=== PATIENT | female | born 1965 | race Caucasian/White ===

== ENCOUNTER 2017-11-23 12:08 | Day surgery (SDC) | payer SELFPAY ==
--- NOTE | 2017-11-22 21:54 | PCM.HP.BLA ---
History and Physical Date of Admission: 11/23/17 Surgical History and Physical Darlene Patton, a 52 year old female 7 0 0 0 7, presents for Vaginal Hysterectomy and AP Repair on November 23, 2017 at [facility]. -- Cystocele/Rectocele; Menorrhagia; Submucous Fibroids -- Prolonged bleeding with clots which began 1 year ago. Darlene claims it started gradually and has been present worsened in last 6 months. It occurs with menses. It is located in the vagina.; It is located in the lower abdomen. Darlene characterizes the quality heavy bleeding, clots,cramping. Severity is moderate and very concerned; It is relieved by oral iron. Associated signs and symptoms are recent hgb in 9's. Additional comments are: had D and C last fall showing submucous fibroids. MEDICATIONS HISTORY: Patient is also takin. progesterone micronized 200 mg capsule, 1 PO QD ALLERGIES: No Known Allergies Infections - Chicken pox, Mumps and Measles Illnesses - no serious past illnesses Accidents - None Hospitalizations - see surgery Review of Systems: GENERAL - Denies fever, or chills SKIN - Denies skin changes EYES - Denies visual changes EARS - Denies difficulty hearing NOSE - Denies nasal congestion or bleeding MOUTH - Denies sore throat or difficulty swallowing NECK - Denies pain or swelling RESPIRATORY - Denies shortness of breath or wheezing CARDIOVASCULAR - Denies palpitations or chest pain GASTROINTESTINAL - Denies nausea, vomiting, diarrhea, constipation GENITOURINARY - Denies dysuria, frequency of urination, incontinence of urine MUSCULOSKELETAL - Denies joint or muscle pain NEUROLOGICAL - Denies localized numbness or weakness PSYCHIATRIC - Denies depression or anxiety ENDOCRINE - Denies heat or cold intolerance, weight loss or gain HEMATO-IMMUNOLOGIC - Denies excesive bleeding with cuts SOCIAL HISTORY: Alcohol Use - None Smoking - Never Diet - no special diet Lifestyle - moderate stress lifestyle and Exercise - active work Seat Belt Use - most of the time Employer - [employer] Illicit Drug Use - None Sexual Activity - Spouse-Sig Other Name - Tereso Spouse-Sig 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 T and A, 1968 ; - 2. 03/16/2017 hysteroscopy, Fractional D and C ; Gene Javed M.D. - PHYSICAL EXAM BP- 134/82 Sitting, Left arm, regular cuff Weight- 152.70599 lbs Height- 62.5 inch BMI:27.42 CONSTITUTIONAL - NAD, well nourished, and well developed SKIN - No rash, lesions, or ulcers HEENT - Normocephalic, PERRLA, EOMI NECK - No nodes, no nuchal rigidity and thyroid normal size and texture LYMPH NODES - Palpation of lymph nodes in neck and groins within normal limits LUNGS - CTA x2 without wheezes, crackles or rales CARDIAC - Regular rate and rhythm without rubs, murmurs, or gallops ABDOMEN - Without hepatosplenomegaly, distention, masses, rebound, or guarding; normal bowel sounds; no hernias EXTREMITIES - No edema or calf tenderness NEUROLOGICAL - Cranial nerves II-XII grossly intact PSYCHIATRIC - A and O to time, place, person, mood and affect External Genitial Vagina - non-tender without lesions Urethra/Urethral Meatus - non-tender Bladder - non-tender Vagina - vaginal fleming are pink and moist without loss of rugae and no evidence of atropy and blood in vagina Cervix - without cervical motion tenderness and has normal size and features without evident lesions Uterus - enlarged uterus 8 wks, wt 125-150 g Adnexa - clear without massess or tenderness ASSESSMENT/PLAN: 1. Blood Loss Anemia, Cystocele Midline, Leiomyoma, Unspec, Menorrhagia and Rectocele Discussed options for treatment and plan to proceed with Vaginal Hysterectomy, AP Repair. Discussed RBAS and all questions answered.
--- NOTE | 2017-11-22 21:57 | HP.PCM_ITS ---
History and Physical Date of Admission: 11/23/17 Surgical History and Physical Darlene Patton, a 52 year old female 7 0 0 0 7, presents for Vaginal Hysterectomy and AP Repair on November 23, 2017 at [facility]. -- Cystocele/Rectocele; Menorrhagia; Submucous Fibroids -- Prolonged bleeding with clots which began 1 year ago. Darlene claims it started gradually and has been present worsened in last 6 months. It occurs with menses. It is located in the vagina.; It is located in the lower abdomen. Darlene characterizes the quality heavy bleeding, clots,cramping. Severity is moderate and very concerned; It is relieved by oral iron. Associated signs and symptoms are recent hgb in 9's. Additional comments are: had D and C last fall showing submucous fibroids. MEDICATIONS HISTORY: Patient is also takin. progesterone micronized 200 mg capsule, 1 PO QD ALLERGIES: No Known Allergies Infections - Chicken pox, Mumps and Measles Illnesses - no serious past illnesses Accidents - None Hospitalizations - see surgery Review of Systems: GENERAL - Denies fever, or chills SKIN - Denies skin changes EYES - Denies visual changes EARS - Denies difficulty hearing NOSE - Denies nasal congestion or bleeding MOUTH - Denies sore throat or difficulty swallowing NECK - Denies pain or swelling RESPIRATORY - Denies shortness of breath or wheezing CARDIOVASCULAR - Denies palpitations or chest pain GASTROINTESTINAL - Denies nausea, vomiting, diarrhea, constipation GENITOURINARY - Denies dysuria, frequency of urination, incontinence of urine MUSCULOSKELETAL - Denies joint or muscle pain NEUROLOGICAL - Denies localized numbness or weakness PSYCHIATRIC - Denies depression or anxiety ENDOCRINE - Denies heat or cold intolerance, weight loss or gain HEMATO-IMMUNOLOGIC - Denies excesive bleeding with cuts SOCIAL HISTORY: Alcohol Use - None Smoking - Never Diet - no special diet Lifestyle - moderate stress lifestyle and Exercise - active work Seat Belt Use - most of the time Employer - [employer] Illicit Drug Use - None Sexual Activity - Spouse-Sig Other Name - Tereso Spouse-Sig 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 T and A, 1968 ; - 2. 03/16/2017 hysteroscopy, Fractional D and C ; Gene Javed M.D. - PHYSICAL EXAM BP- 134/82 Sitting, Left arm, regular cuff Weight- 152.90059 lbs Height- 62.5 inch BMI:27.42 CONSTITUTIONAL - NAD, well nourished, and well developed SKIN - No rash, lesions, or ulcers HEENT - Normocephalic, PERRLA, EOMI NECK - No nodes, no nuchal rigidity and thyroid normal size and texture LYMPH NODES - Palpation of lymph nodes in neck and groins within normal limits LUNGS - CTA x2 without wheezes, crackles or rales CARDIAC - Regular rate and rhythm without rubs, murmurs, or gallops ABDOMEN - Without hepatosplenomegaly, distention, masses, rebound, or guarding; normal bowel sounds; no hernias EXTREMITIES - No edema or calf tenderness NEUROLOGICAL - Cranial nerves II-XII grossly intact PSYCHIATRIC - A and O to time, place, person, mood and affect External Genitial Vagina - non-tender without lesions Urethra/Urethral Meatus - non-tender Bladder - non-tender Vagina - vaginal fleming are pink and moist without loss of rugae and no evidence of atropy and blood in vagina Cervix - without cervical motion tenderness and has normal size and features without evident lesions Uterus - enlarged uterus 8 wks, wt 125-150 g Adnexa - clear without massess or tenderness ASSESSMENT/PLAN: 1. Blood Loss Anemia, Cystocele Midline, Leiomyoma, Unspec, Menorrhagia and Rectocele Discussed options for treatment and plan to proceed with Vaginal Hysterectomy, AP Repair. Discussed RBAS and all questions answered.
--- NOTE | 2017-11-23 12:08 | DT_ITS ---
This patient was seen during an EMR downtime November 23, 2017 - November 30, 2017. This patient may have a combination of paper and electronic documentation or all paper documentation. All documentation is viewable within the e-chart portion of [facility] for each patient visit.
--- NOTE | 2017-11-24 | HYST_PTH ---
PATIENT: MIN RUBIO LOC: [facility] [place][id number] AGE/SX: 52/F ROOM: RE11/23/[address]: Dr. Gene Javed MD : [id number] BED: DIS: 11/24/2017 SPEC #: [id number] RECD: 11/24/17 11:46 STATUS: NOHEMI GREG #: [id number] LINA: 11/24/17 00:[address]: Gene Javed DEPT: SURGICAL PATHOLOGY RECD BY: Sharad Dye ENTERED: 11/26/17 11:46 SP TYPE: HYSTERECT OTHR DR: Dr. Sami Green MD Tissues: Uterus, NOS Procedures: Surgery Specimen Level V HEADER OPERATION: Hysterectomy PRE-OP DIAGNOSIS: Cystocele/rectocele; menorrhagia TISSUE SUBMITTED: Uterus, vaginal mucosa MICROSCOPIC DIAGNOSIS Uterus, hysterectomy: Cervix ? chronic cystic cervicitis with squamous metaplasia and tunnel cluster formation. Endometrium ? weakly proliferative endometrium with focal cystic changes. Myometrium ? intramural to submucosal leiomyomas (largest measuring 5 cm in diameter). See comment. Vaginal mucosa ? mild chronic inflammation and reactive changes. SJ:sade 11/30/17 COMMENT The largest leiomyoma also shows focal area of hemorrhage and hyalinization. MICROSCOPIC DESCRIPTION Slides are reviewed. GROSS DESCRIPTION Received in fixative is one container labeled with the patient's name and designated uterus and vaginal mucosa. The specimen consists of a hysterectomy specimen consisting of uterus with cervix and detached pieces of mucosal tissue. The uterus with cervix weighs 224 gm and measures 10.5 x 8 x 7 cm. The serosal surface is rendon, glistening. The ectocervical mucosa is congested. The external os is slit-like in contour. The endocervical canal measures 2 cm in length and the endocervical mucosa is unremarkable. The triangular endometrial cavity is compressed to one side and measures 5 cm in length and 3 cm in width. The endometrium is rendon, glistening and measures 0.1 cm in thickness. Sections of uterine wall reveal multiple rendon nodular masses. The largest mass is submucosal to intramural in location and measures 5 cm in diameter. Sections of these masses reveal rendon whorled cut surfaces without areas of hemorrhage, necrosis or cystic degeneration. The uninvolved uterine wall measures up to 2 cm in thickness. The detached pieces of mucosal tissue measure in aggregate 8 x 4 x 1 cm. No lesion is identified. Employee Benefits Attorney sections are submitted in ten cassettes as follows: 1 - anterior cervix, 2 - posterior cervix, 3 & 4 - anterior uterine wall, 5 & 6 - posterior uterine wall, 7 ? smaller nodular mass, 8 & 9 ? largest nodular mass, 10 ? mucosal tissue. / BETTY:sade 11/24/17 TC:1 CPT: 30502
[2017-11-26 18:25] LABS: Internal QC Validated? YES +Cl - CLEAR BKGD; Pregnancy, Urine Negative Negative
[2017-11-27 11:42] LABS: Hematocrit 25.8 % (37-47); Hemoglobin 8.2 g/dl (12.0-15.0); Mean Corp Hgb Conc 31.8 g/gl (32-36); Mean Corpuscular Hgb 29.4 pg (27.0-32.0); Mean Corpuscular Volume 92.5 fL (81-99); Mean Platelet Vol. 10.1 fl (6.2-12.0); Platelet Count 209 K/mm3 (150-450); RBC Distribution Width CV 13.9 % (11.6-14.6); RBC Distribution Width SD 44.8 fl (35.1-43.9); Red Blood Count 2.79 M/mm3 (4.2-5.4); White Blood Count 8.1 K/mm3 (4.4-11.0)
[2017-11-27 11:43] LABS: Scan Indicated on CBC? Y/N NO
[2017-11-28 08:32] LABS: Creatinine, Serum 0.78 mg/dL (0.55-1.02); EST Glomerular Filtration Rate 82 mL/min (>60); Est Glom Filt Rate - Afr Amer 99 mL/min (>60)
== END 2017-11-24 14:25 | disposition home or self-care (01) ==
LOC: SDC 11-25 12:27
PROVIDERS: Visit Provider Obstetrics & Gynecology
PROC: (CPT 58260; principal; 2017-11-23 14:25)
DX: D25.0 Submucous leiomyoma of uterus (principal); D25.1 Intramural leiomyoma of uterus; N72 Inflammatory disease of cervix uteri; N81.11 Cystocele, midline; N81.6 Rectocele; D50.0 Iron deficiency anemia secondary to blood loss (chronic)
CPT/HCPCS: 00940; 57260; 58260; 36415; 81025; 82565; 85027; 88307; J7120; J2405